=== PATIENT | female | born 1970 | race Caucasian/White ===

== ENCOUNTER 2017-02-01 02:29 | Emergency (ER) | payer BC ==
[~2017-02-01] VITALS: Ht 165.1 cm; Wt 61.2 kg
[~2017-02-01 02:29] MED LIST: FLOMAX0.4 MG PO; NORCO 5-325 TA1 EACH PO; ZOFRAN ODT4 MG SL
[2017-02-01] MEDS ORDERED: NORCO 5-325 TA1 EACH PO (07:01)
[2017-02-01] MEDS ORDERED: FLOMAX0.4 MG PO (07:03)
== END 2017-02-01 07:45 | disposition home or self-care (01) ==
LOC: ED 02:29
DX: N13.2 Hydronephrosis with renal and ureteral calculous obstruction (principal); N20.9 Urinary calculus, unspecified; Z90.49 Acquired absence of other specified parts of digestive tract; Z88.0 Allergy status to penicillin; Z79.899 Other long term (current) drug therapy
CPT/HCPCS: 74176; 80053; 81001; 84703; 85025; 96361; 96374; 96375; 96376; 99284; J1170; J1885; J2270; J2405; J7030

== ENCOUNTER 2024-09-14 11:04 | Emergency (ER) | payer OTHER ==
[~2024-09-14] VITALS: Ht 162.6 cm; Wt 55.0 kg
[2024-09-14] MEDS ORDERED: ESCITALOPRAM OX20 MG PO (11:20)
[2024-09-14] MEDS ORDERED: REGLAN10 MG PO (11:21)
[2024-09-14] MEDS ORDERED: KETOROLAC TROMETHAMINE 15 MG/ML VIAL IV ONE (11:45)
[2024-09-14] MEDS ORDERED: SODIUM CHLORIDE 0.9% 1,000 ML IV PRN (11:45)
[2024-09-14 12:22] LABS: BASOPHILS 0.4 % (0.1-1.2); EOSINOPHILS 0.3 % (0.7-5.8); LYMPHOCYTES 15.7 % (19.3-51.7); MCH 29.9 PG (25.6-32.2); MCHC 32.6 g/dL (32.2-35.5); MCV 91.7 fL (79.4-94.8); MONOCYTES 5.3 % (4.7-12.5); NEUTROPHILS 78.0 % (34.0-71.1); RBC 4.71 M/uL (3.93-5.22)
[2024-09-14 12:37] LABS: ALT (SGPT) 34.0 U/L (14-59); AST (SGOT) 13.0 U/L (15-37); GLOMERULAR FILTRATION RATE,EST 69.0 mL/min (>60); PROTEIN, TOTAL 7.7 g/dL (6.4-8.2); UREA NITROGEN 42.0 mg/dL (7-18)
[2024-09-14] MEDS ORDERED: ONDANSETRON ODT4 MG PO (12:53)
[2024-09-14 13:15] VITALS: BP 131/86
== END 2024-09-14 13:15 | disposition home or self-care (01) ==
LOC: ED 11:04
PROVIDERS: Emergency Medicine
DX: K31.84 Gastroparesis (principal); Z79.899 Other long term (current) drug therapy
CPT/HCPCS: 36415; 80053; 83690; 85025; 96361; 96374; 96375; 99284-25; J1200; J2405; J7030